=== PATIENT | female | born 1955 | race African-American/Black ===

== ENCOUNTER 2023-10-13 08:00 | Outpatient (CLI) | payer MEDICARE, OTHER ==
--- NOTE | 2023-10-13 12:16 | XRAY Report ---
PROCEDURE: Shoulder 2+V RT INDICATIONS: PAIN IN RIGHT SHOULDER TECHNIQUE: 3 views of the shoulder were acquired. COMPARISON: None. FINDINGS: Bones: No fractures or dislocations. There is lateral calcific tendinitis or bursitis. This is yary cent to the greater tuberosity of the right humerus. No suspicious bony lesions. Visualized ribs marissa ear intact. Soft tissues: No suspicious soft tissue calcifications. The visualized lungs are within normal limi ts. IMPRESSION: Calcific tendinitis or bursitis lateral right humerus area. No acute trauma found. Reviewed by: Lit Wilkes MD on 10/13/2023 12:15 PM PDT Approved by: Lit Wilkes MD on 10/13/2023 12:15 PM PDT Station ID: [id number]
== END 2023-10-13 08:15 | disposition home or self-care (01) ==
LOC: DI.N 08:00
PROVIDERS: ATTEND Registered Nurse
DX: M25.511 Pain in right shoulder (principal)